=== PATIENT | female | born 1990 | race Caucasian/White ===

== ENCOUNTER 2018-05-11 07:44 | Day surgery (SDC) | payer MEDICAID ==
[2018-05-10 16:18] LABS: BASOPHILS % (AUTO) 0.2 % (0.0-5.0); EOSINOPHILS % (AUTO) 2.9 % (0.0-8.0); HEMATOCRIT 41.4 % (36-48); LYMPHOCYTES % (AUTO) 22.9 % (21.0-51.0); MEAN CORPUSCULAR HEMOGLOBIN 31.9 pg (27.0-33.0); MEAN CORPUSCULAR HGB CONC 33.8 g/dL (32.0-36.0); MEAN CORPUSCULAR VOLUME 94.3 fL (79-99); MONOCYTES % (AUTO) 8.1 % (3.0-13.0); NEUTROPHILS % (AUTO) 65.9 % (40.0-77.0); PLATELET COUNT (AUTO) 194 K/uL (130-400); RED BLOOD CELL COUNT(AUTO) 4.39 MIL/uL (4.00-5.50); WHITE BLOOD COUNT (AUTO) 4.9 K/uL (4.8-10.8)
[2018-05-10 16:55] VITALS: BP 111/58
[2018-05-11] VITALS (14 sets, daily range): BP systolic 97–116; BP diastolic 55–71
[~2018-05-11] VITALS: Ht 176.5 cm; Wt 66.3 kg
[~2018-05-11 07:44] MED LIST: CALDOLOR 800MG+NS 250ML 250 ML IV SCH; CETI-101 PO; CLIN300C9 PO; LACTATED RINGERS 1000ML 1,000 ML IV SCH
[2018-05-11] MEDS ORDERED: LIDOCAINE PF 2% 5ML ABBOJECT ONE (08:27)
[2018-05-11] MEDS ORDERED: PROPOFOL 10 MG/ML 20ML VIAL IV ONE (08:27)
[2018-05-11] MEDS ORDERED: FENTANYL CITRATE PF 50 MCG/1 ML 2ML VIAL ONE (08:28)
[2018-05-11] MEDS ORDERED: ONDANSETRON HCL 4 MG/2 ML VIAL ONE ×2 (10:05→10:24)
[2018-05-11] MEDS ORDERED: METOCLOPRAMIDE 10 MG/2 ML VIAL ONE (10:08)
== END 2018-05-11 12:27 | disposition home or self-care (01) ==
LOC: DAH 07:44
DX: N92.0 Excessive and frequent menstruation with regular cycle (principal); Z79.899 Other long term (current) drug therapy; J45.909 Unspecified asthma, uncomplicated; K21.9 Gastro-esophageal reflux disease without esophagitis; Z98.890 Other specified postprocedural states; Z98.51 Tubal ligation status
CPT/HCPCS: 36415; 58558; 82948 ×2; 84703; 85025; 88305; A4351; A4355; A4510; A4600; A4930 ×2; J1741; J2001; J2405 ×2; J2704; J2765; J3010; J7030; J7120 ×2